=== PATIENT | male | born 1965 | race Caucasian/White ===

== ENCOUNTER 2017-02-05 12:36 | Emergency (ER) | payer BC ==
[2017-02-05 12:38] VITALS: BP 162/93; PULSE 88; RESP 20; TEMP 98.8; O2SAT 99
[2017-02-05] MEDS ORDERED: SODIUM CHLORIDE 0.9% FLUSH 10 ML FLUSH IV FLUSH PRN (14:45)
[2017-02-05] MEDS ORDERED: NEXI20CA PO (14:47)
--- NOTE | 2017-02-05 14:48 | PD ---
HPI Chief Complaint: Abdominal Pain Time Seen by Provider: 14:44 Travel History International Travel<30 days: No Contact w/Intl Traveler<30days: No Traveled to known affect area: No History of Present Illness HPI 52-year-old male with history of chronic abdominal pain and inguinal hernia for which she is being evaluated by primary care physician, presents to the ER today for nausea that started while he was driving this afternoon. He also had right lower quadrant abdominal discomfort. He has had a appendectomy in the past. He denies any current chest pains, fevers, vomiting, diarrhea, or other symptoms. Modifying Factors: None Associated Signs & Symptoms: Nausea, right lower quadrant pain Risk Factors: Right inguinal hernia history PFSH Social History Tobacco Use: No Allergies-Medications (Allergen,Severity, Reaction): Coded Allergies: No Known Allergies (Unverified , 02/05/17) Reported Meds & Prescriptions Reported Meds & Active Scripts Active Reported Nexium (Esomeprazole DR) 20 Mg Capdr 20 Mg PO DAILY Review of Systems Except as stated in HPI: all other systems reviewed are Neg Physical Exam Narrative GENERAL: Well-developed middle age white male patient currently in mild distress. Awake and oriented 3. SKIN: Focused skin assessment warm/dry. HEAD: Atraumatic. Normocephalic. EYES: Pupils equal and round. No scleral icterus. No injection or drainage. ENT: No nasal bleeding or discharge. Mucous membranes pink and moist. NECK: Trachea midline. No JVD. CARDIOVASCULAR: Regular rate and rhythm. No murmur appreciated. RESPIRATORY: No accessory muscle use. Clear to auscultation. Breath sounds equal bilaterally. GASTROINTESTINAL: Abdomen soft, mild tenderness on palpation of the right inguinal area where there is a hernia which is reducible, nondistended. Hepatic and splenic margins not palpable. MUSCULOSKELETAL: No obvious deformities. No clubbing. No cyanosis. No edema. NEUROLOGICAL: Awake and alert. No obvious cranial nerve deficits. Motor grossly within normal limits. Normal speech. PSYCHIATRIC: Appropriate mood and affect; insight and judgment normal. Data Data Last Documented VS Vital Signs Date Time Temp Pulse Resp B/P Pulse Ox O2 Delivery O2 Flow Rate FiO2 02/05/17 12:38 98.8 88 20 162/93 99 Room Air Orders Complete Blood Count With Diff (02/05/17 14:44) Comprehensive Metabolic Panel (02/05/17 14:44) Lipase (02/05/17 14:44) Urinalysis - C+S If Indicated (02/05/17 14:44) Abdomen, Flat & Upright (02/05/17 ) Iv Access Insert/Monitor (02/05/17 14:44) Ecg Monitoring (02/05/17 14:44) Oximetry (02/05/17 14:44) Sodium Chloride 0.9% Flush (Ns Flush) (02/05/17 14:45) Ondansetron Inj (Zofran Inj) (02/05/17 16:15) Labs Laboratory Tests Test 02/05/17 02/05/17 14:44 14:55 Urine Color LIGHT-YELLOW Urine Turbidity CLEAR Urine pH 7.0 Urine Specific [place] 1.007 Urine Protein NEG mg/dL Urine Glucose (UA) NEG mg/dL Urine Ketones NEG mg/dL Urine Occult Blood NEG Urine Nitrite NEG Urine Bilirubin NEG Urine Urobilinogen LESS THAN 2.0 MG/DL Urine Leukocyte Esterase NEG Urine RBC LESS THAN 1 /hpf Urine WBC 2 /hpf Microscopic Urinalysis Comment CULT NOT INDICATED White Blood Count 6.2 TH/MM3 Red Blood Count 4.92 MIL/MM3 Hemoglobin 15.0 GM/DL Hematocrit 43.1 % Mean Corpuscular Volume 87.7 FL Mean Corpuscular Hemoglobin 30.6 PG Mean Corpuscular Hemoglobin 34.9 % Concent Red Cell Distribution Width 12.7 % Platelet Count 186 TH/MM3 Mean Platelet Volume 8.2 FL Neutrophils (%) (Auto) 73.8 % Lymphocytes (%) (Auto) 19.6 % Monocytes (%) (Auto) 5.3 % Eosinophils (%) (Auto) 0.5 % Basophils (%) (Auto) 0.8 % Neutrophils # (Auto) 4.6 TH/MM3 Lymphocytes # (Auto) 1.2 TH/MM3 Monocytes # (Auto) 0.3 TH/MM3 Eosinophils # (Auto) 0.0 TH/MM3 Basophils # (Auto) 0.0 TH/MM3 CBC Comment DIFF FINAL Differential Comment Sodium Level 140 MEQ/L Potassium Level 3.6 MEQ/L Chloride Level 104 MEQ/L Carbon Dioxide Level 29.3 MEQ/L Anion Gap 7 MEQ/L Blood Urea Nitrogen 11 MG/DL Creatinine 1.18 MG/DL Estimat Glomerular Filtration 64 ML/MIN Rate Random Glucose 112 MG/DL Calcium Level 9.0 MG/DL Total Bilirubin 0.6 MG/DL Aspartate Amino Transf 14 U/L (AST/SGOT) Alanine Aminotransferase 18 U/L (ALT/SGPT) Alkaline Phosphatase 67 U/L Total Protein 7.7 GM/DL Albumin 4.3 GM/DL Lipase 105 U/L MDM Medical Decision Making Medical Screen Exam Complete: Yes Emergency Medical Condition: Yes Medical Record Reviewed: Yes Interpretation(s) Laboratory Tests Test 02/05/17 14:55 Neutrophils (%) (Auto) 73.8 % (16.0-70.0) Estimat Glomerular Filtration 64 ML/MIN (>89) Rate Random Glucose 112 MG/DL (74-106) Aspartate Amino Transf 14 U/L (15-37) (AST/SGOT) Differential Diagnosis Right inguinal hernia, reducible, nauseareducible hernia versus gastroenteritis versus obstruction Narrative Course The right inguinal hernia is reducible. Abdomen is otherwise benign. Patient felt significant relief after reduction of the right inguinal hernia. X-ray did not show any signs of acute obstruction. Lab work was otherwise unremarkable. At this point, my plan would be to release the patient with follow-up to primary care physician. Return for any worsening symptoms as needed. The plan has been discussed with the patient and he states understanding. Diagnosis Primary Impression: Inguinal hernia of right side without obstruction or gangrene Disposition: 01 DISCHARGE HOME Condition: Stable Zahra Hollingsworth MD Feb 05, 2017 14:48
[2017-02-05 15:09] LABS: AUTOMATED NEUTROPHIL # 4.6 TH/MM3 (1.8-7.7); BASOPHIL % 0.8 % (0.0-2.0); EOSINOPHIL % 0.5 % (0.0-4.0); HEMATOCRIT 43.1 % (39.0-51.0); HEMO FLAGS DIFF FINAL; LYMPH % 19.6 % (9.0-44.0); LYMPHOCYTE # 1.2 TH/MM3 (1.0-4.8); MEAN CELL VOLUME 87.7 FL (80.0-100.0); MEAN CORPUSCULAR HEMOGLOBIN 30.6 PG (27.0-34.0); MEAN CORPUSCULAR HGB CONC 34.9 % (32.0-36.0); MONO % 5.3 % (0.0-8.0); NEUT % 73.8 % (16.0-70.0); PLATELET COUNT 186 TH/MM3 (150-450); RED BLOOD COUNT 4.92 MIL/MM3 (4.50-5.90); RED CELL DISTRIBUTION WIDTH 12.7 % (11.6-17.2); WHITE BLOOD COUNT 6.2 TH/MM3 (4.0-11.0)
[2017-02-05 15:43] LABS: CHLORIDE 104 MEQ/L (98-107); POTASSIUM 3.6 MEQ/L (3.5-5.1); SODIUM (NA) 140 MEQ/L (136-145)
[2017-02-05 15:50] LABS: ALKALINE PHOSPHATASE 67 U/L (45-117); ALT (GPT) 18 U/L (12-78); ANION GAP 7 MEQ/L (5-15); AST (GOT) 14 U/L (15-37); BICARBONATE 29.3 MEQ/L (21.0-32.0); BLOOD UREA NITROGEN 11 MG/DL (7-18); GLOMERULAR FILTRATION RATE 64 ML/MIN (>89); TOTAL BILIRUBIN ADULT 0.6 MG/DL (0.2-1.0)
[2017-02-05] MEDS ORDERED: ONDANSETRON HCL 4 MG/2 ML VIAL IV PUSH ONE (16:15)
[2017-02-05 16:49] LABS: BLOOD, URINE NEG (NEG); GLUCOSE,URINE NEG (NEG); KETONE, URINE NEG (NEG); NITRITE,URINE NEG (NEG); URINE COLOR LIGHT-YELLOW (YELLW/STRAW)
[2017-02-05 16:51] LABS: COMMENT (UR) CULT NOT INDICATED; CULTURE IF INDICATED CULT NOT INDICATED
--- NOTE | 2017-02-05 17:08 | RADRPT ---
EXAM DATE/TIME: 02/05/2017 16:24 [facility] COMPARISON: No previous studies available for comparison. EXTERNAL COMPARISON : [facility] December 2016 INDICATIONS : Abdominal pain MEDICAL HISTORY : None. SURGICAL HISTORY : None. ENCOUNTER: Initial ACUITY: 2 months PAIN SCORE: 7/10 LOCATION: Right lower quadrant Abdomen FINDINGS: The bowel gas is nonspecific. There are no signs of obstruction or free air for technique. No defini te calcified stones are identified for technique. CONCLUSION: Nonspecific abdomen. Rhea Vasquez MD on February 05, 2017 at 17:07 Board Certified Radiologist. This report was verified electronically.
[2017-02-05 17:33] VITALS: BP 143/83; PULSE 77; RESP 19; O2SAT 100
[2017-02-05 18:07] LABS: CREATINE KINASE 76 U/L (39-308)
--- NOTE | 2017-02-06 12:34 | EKG ---
Date Performed: 02/05/2017 Time Performed: 17:04:00 PTAGE: 52 years EKG: Sinus rhythm POSSIBLE INFERIOR MYOCARDIAL INFARCTION BORDERLINE ECG NO PREVIOUS TRACING DOCTOR: Honorio Kumar Interpretating Date/Time 02/06/2017 12:32:57
== END 2017-02-05 18:55 | disposition home or self-care (01) ==
LOC: NEPC 12:36
DX: K40.90 Unilateral inguinal hernia, without obstruction or gangrene, not specified as recurrent (principal); R11.0 Nausea; G89.29 Other chronic pain; R10.31 Right lower quadrant pain
CPT/HCPCS: 74020; 80053; 81001; 82550; 83690; 84484; 85025; 93005; 96374; 99285; J2405